=== PATIENT | female | born 1980 | race Two or more races ===

== ENCOUNTER 2019-12-31 11:18 | Emergency (ER) | payer SELFPAY ==
[~2019-12-31] VITALS: Ht 152.4 cm; Wt 81.6 kg
--- NOTE | 2019-12-31 11:36 | NUR ---
[facility]IGNIEW FROM [facility]. LETHARGIC ARROUSABLE AND RESPONSIVE TO VOICE. AAOX4. NOT IS RESP DISTRESS, BREATHING EVEN AND UNLABORED. BROUGHT IF FOR A SYNCOPAL EPISODE WHILE HAVING HER SUTURE REMOVED ON THE R SHOULD. PT STATES THAT SHE HAD SURGERY DONE ON IT BECUASE OF A WORK INJURY. PT IS COMPLAINING OF ABDOMINAL PAIN A ND VOMMITED X 3 EPISODE. PAIN ON R SHOULDER WITH LIMITED ROM D/T SP SURGERY. PT PLACED ON MONITOR. AWAITING MD FOR EVAL.
[2019-12-31] MEDS ORDERED: KETOROLAC TROMETHAMINE 15 MG/ML VIAL ONE (11:43)
[2019-12-31] MEDS ORDERED: ONDANSETRON HCL/PF 4 MG/2 ML VIAL ONE (11:43)
[2019-12-31] MEDS: IV NS 0.9% 1,000 ML BAG IV ONE (11:56)
[2019-12-31] MEDS: ONDANSETRON HCL/PF 4 MG/2 ML VIAL IVP ONE (11:57)
[2019-12-31 12:00] LABS: BASOPHILS % (AUTO) 0.4 % (0.0-2.0); HEMATOCRIT 40 % (33-45); HEMOGLOBIN 13.2 g/dL (11.5-14.8); LYMPHOCYTES # (AUTO) 3.1 /CMM (0.8-4.8); LYMPHOCYTES % (AUTO) 33.2 % (20.0-44.0); MEAN CORPUSCULAR HGB CONC 33 g/dl (31.0-36.0); MEAN CORPUSCULAR VOLUME 91 fL (82-100); MONOCYTES # (AUTO) 0.8 /CMM (0.1-1.30); MONOCYTES % (AUTO) 8.8 % (2.0-12.0); NEUTROPHILS # (AUTO) 5.2 /CMM (1.8-8.9); NEUTROPHILS % (AUTO) 55.6 % (43.0-81.0); PLATELET COUNT (AUTO) 356 /CMM (150-450); RED BLOOD CELL COUNT(AUTO) 4.35 MIL/uL (4.0-5.2); WHITE BLOOD COUNT (AUTO) 9.4 K/uL (4.3-11.0)
[2019-12-31 12:13] LABS: CALCIUM, SERUM 8.9 mg/dL (8.5-10.1); CREATININE 0.7 mg/dL (0.6-1.3); POTASSIUM 3.2 mmol/L (3.5-5.1)
[2019-12-31 12:19] LABS: ALBUMIN 3.9 g/dL (3.4-5.0); BILIRUBIN,DIRECT 0.1 mg/dL (0.0-0.2); BILIRUBIN,TOTAL 0.3 mg/dL (0.2-1.0); TOTAL PROTEIN, SERUM 7.8 g/dL (6.4-8.2)
[2019-12-31] MEDS: KETOROLAC TROMETHAMINE INJ 30 MG/ML VIAL IV ONE (12:50)
[2019-12-31 13:35] VITALS: BP 126/77
--- NOTE | 2019-12-31 13:45 | NUR ---
IV removed. Catheter intact and site benign. Pressure and 4x4 applied to site. No bleeding noted.Patient discharged to home in stable condition. Written and verbal after care instructions given. Patient verbalizes understanding of instruction.
== END 2019-12-31 13:47 | disposition home or self-care (01) ==
LOC: ER 11:24
DX: R10.13 Epigastric pain (principal); R11.0 Nausea
CPT/HCPCS: 36415; 76705; 80048; 80076; 83690; 84702; 85025; 96374; 96375; 99284; J1885; J2405; J7030